=== PATIENT | female | born 1990 | race Caucasian/White ===

== ENCOUNTER 2023-09-01 10:46 | Outpatient (CLI) | payer OTHER, SELFPAY ==
--- NOTE | 2023-09-01 11:00 | CRLHL7_ITS ---
For Patients: As a result of the Century Cures Act, medical imaging exams and procedure reports are released immediately into your electronic medical record. You may view this report before your referring provider. If you have questions, please contact your health care provider. INDICATION: Ultrasound for dates and viability. Nine week 2 day gestation. Recent miscarriage Technique: Multiple transvaginal grayscale and color Doppler images obtained. FINDINGS: Examination shows a single intrauterine gestation. MEASUREMENTS: Right ovary measures 1.9 x 1.0 x 1.0 cm. Left ovary measures 2.9 x 2.2 x 2.2 cm. Corpus luteum cyst present. EARLY GESTATION MEASUREMENTS: Wisdom-rump length 3.0 cm, AGA of 10 weeks, 0 days. Mean gestational sac 4.9 cm, AGA of 10 weeks, 4 days. Yolk sac: 0.4 cm. Heart Rate: 173 bpm. Estimated date of delivery 03/29/2024 IMPRESSION: 1. Single viable intrauterine 2. Measurements are consistent with dates. Dictated by Rosas Bernabe MD @ 09/01/2023 3:13:30 PM (Electronically Signed)
== END 2023-09-01 10:47 | disposition home or self-care (01) ==
PROVIDERS: Visit Provider Advanced Practice Midwife
DX: Z34.91 Encounter for supervision of normal pregnancy, unspecified, first trimester (principal); Z3A.10 10 weeks gestation of pregnancy
CPT/HCPCS: 76817; 86703; 86706; 86803; 86850; 86900; 86901; 87086; 87340

== ENCOUNTER 2023-09-01 12:28 | Outpatient (CLI) | payer OTHER, SELFPAY | END 2023-09-01 12:29 | disposition home or self-care (01) | PROVIDERS: Visit Provider Advanced Practice Midwife | DX: Z34.91 Encounter for supervision of normal pregnancy, unspecified, first trimester (principal) | CPT/HCPCS: 86592; 86703; 86704; 86706; 86762; 86787; 86803; 86850; 86900; 86901; 87086; 87340 ==

== ENCOUNTER 2023-11-17 13:53 | Outpatient (CLI) | payer OTHER, SELFPAY ==
--- NOTE | 2023-11-17 14:00 | US_ITS ---
Patient: SHEELA MCCOY Facility:?[facility] Patient ID:?[id number] Site Patient ID:?[id number]. Site :?[id number] Study:?US-OB Pelvis OB > 14wks-11/17/2023 3:24:11 PM Ordering Physician:Sandy Snell Final Report: INDICATION: Evaluate anatomy. COMPARISON: 09/01/2023 TECHNIQUE: Real time lauren scale imaging of the fetus was performed as well as color Doppler analysis of the umbilical vessels. FINDINGS: Sonographic imaging demonstrates a single living intrauterine gestation. Fetus demonstrates a regular cardiac rate of 139 beats per minute. Fetus has a transverse position, head maternal right. The placenta lies anterior. Placental edge is 2.0 cm from the internal cervical os. Amniotic fluid volume appears normal. Single deepest vertical pocket: 3.4 cm. The cervix is closed and measures 3.9 cm in length. The composite ultrasound gestational age is calculated at 21 weeks 1 day with an estimated sonographic due date of 03/28/2024. The estimated weight is 410 grams which lies at the 91st %. The following biometric measurements were obtained: Biparietal diameter: 5.1 cm/21 weeks 2 days 86th% Head circumference: 18.5 cm/20 weeks 6 days 68th% Abdominal circumference: 16.9 cm/21 weeks 6 days 88th% Femur length: 3.4 cm/20 weeks 4 days 54th% The HC/AC ratio measures: 1.10 range (1.06-1.25) On anatomic survey, there is a normal appearance of the cerebral ventricles, cavum septi pellucidi, cisterna magna and cerebellum. The nose, lips, and facial profile appear normal. The cervical, thoracic and lumbar spine are well visualized and appear normal. There is a normal four-chamber heart view and the left and right ventricular outflow tracts appear normal. The diaphragm and stomach appear normal. The kidneys and bladder also appear normal. There is a normal three-vessel cord and cord insertion site. The four extremities appear normal. IMPRESSION: Sonographic gestational age 21 weeks 1 day and sonographic due date 03/28/2024. Sonographic age 6 days ahead of the clinical age. No intrinsic abnormalities noted on anatomic survey. Low-lying anterior placenta located 2.0 cm from the internal cervical os. Dictated by Amandeep Yi MD @ 11/18/2023 12:50:44 PM Signed by:?Amandeep Yi MD @11/18/2023 12:50:44 PM (Electronic Signature)
== END 2023-11-17 13:54 | disposition home or self-care (01) ==
LOC: US 13:53
PROVIDERS: Visit Provider Advanced Practice Midwife
DX: Z34.92 Encounter for supervision of normal pregnancy, unspecified, second trimester (principal); O44.42 Low lying placenta NOS or without hemorrhage, second trimester; Z3A.21 21 weeks gestation of pregnancy
CPT/HCPCS: 76805

== ENCOUNTER 2024-01-15 12:43 | Outpatient (CLI) | payer OTHER, SELFPAY ==
--- NOTE | 2024-01-15 13:00 | CRLHL7_ITS ---
For Patients: As a result of the Century Cures Act, medical imaging exams and procedure reports are released immediately into your electronic medical record. You may view this report before your referring provider. If you have questions, please contact your health care provider. HISTORY: Low-lying placenta. COMPARISON: Ob ultrasound from 11/17/2023 TECHNIQUE: Limited Ob ultrasound examination of the is performed with transabdominal technique. FINDINGS: A single intrauterine gestation is seen in breech presentation with regular cardiac activity at 135 beats per minute. The placenta is anterior and is free of the cervical os. The previously seen low-lying inferior placental margin is no longer present. The placental grade is 0 and the amniotic fluid volume is normal. Single deepest vertical pocket: normal at 7.6 cm. The nondilated cervix is normal in length at 5.1 cm. IMPRESSION: Single intrauterine gestation in breech presentation with regular cardiac activity. Previously seen low lying margin of the anterior placenta is no longer present. The placenta is free of the cervical os. Dictated by Sony Benson MD @ 01/18/2024 12:10:06 AM (Electronically Signed)
== END 2024-01-15 12:44 | disposition home or self-care (01) ==
PROVIDERS: Visit Provider Advanced Practice Midwife
DX: O44.40 Low lying placenta NOS or without hemorrhage, unspecified trimester (principal)
CPT/HCPCS: 76816; 86592

== ENCOUNTER 2024-03-09 14:50 | Outpatient (CLI) | payer OTHER, SELFPAY | END 2024-03-09 14:51 | disposition home or self-care (01) | LOC: NFLDREF 03-15 06:03 | PROVIDERS: Visit Provider Midwife | DX: Z34.93 Encounter for supervision of normal pregnancy, unspecified, third trimester (principal); Z3A.36 36 weeks gestation of pregnancy | CPT/HCPCS: 87081; 87653 ==

== ENCOUNTER 2024-04-01 18:36 | Outpatient (CLI) | payer OTHER, SELFPAY ==
[2024-04-01 18:49] VITALS: BP 105/62; PULSE 75; PULSE 77; O2SAT 96
[2024-04-01 19:30] VITALS: TEMP 36.8
--- NOTE | 2024-04-01 21:28 | PC.OBNST ---
NST Note NST Note Start: 04/01/24 18:41 Freq: ONCE Status: Discharge Protocol: Document 04/01/24 21:27 CJ (Rec: 04/01/24 21:28 CJ Desktop) NST Note 4 Para (# of births) 1 EDC 04/03/24 Gestational Age In Weeks & Days 39 Weeks & 5 Days Patient Presented with Complaint(s) of Contractions/cramping Reactive Yes Appropriate for Gestational Age Yes RN Raymon Camarena RN Date 04/01/24 Reactive Yes Appropriate for Gestational Age Yes JUANI Hill RN Date 04/01/24 OB NST charge Yes Complete NST Note via Write Note Yes The provider's electronic signature indicates the NST is reactive/appropriate for gestational age. *Note to provider: If an addendum is required, open the patient's chart and click on the note under the Nurse/Allied Health tab.
== END 2024-04-01 21:20 | disposition home or self-care (01) ==
LOC: OB OUT 18:36 → OB 18:36
PROVIDERS: Visit Provider Advanced Practice Midwife
DX: O47.1 False labor at or after 37 completed weeks of gestation (principal); Z3A.39 39 weeks gestation of pregnancy
CPT/HCPCS: 59025; G0463

== ENCOUNTER 2024-04-04 01:01 | Inpatient (IN) | payer OTHER, SELFPAY ==
[2024-04-04] VITALS (21 sets, daily range): BP systolic 99–135; BP diastolic 53–82; PULSE 63–155; RESP 16–18; TEMP 36.4–36.9; O2SAT 96–98; BMI 23.0
--- NOTE | 2024-04-04 02:22 | W.PM.LDBA ---
Subjective History of Present Illness Time Seen by Provider: 12:55 Date Seen: 04/04/24 Narrative: Nata is a 33 yo at 40 1/7 weeks gestation being admitted to Labor and Delivery for spontaneous onset of labor. She came in breathing hard through contractions but coping well. She is supported by her , Keith. She denies any leaking of fluid or bleeding. She reports contractions have been irregular on and off since Thursday. Then last evening they returned and around 2300 is when they became more intense and she felt it was time to head to the Center. Her full history and physical was dictated by JOEY López on 03/16/2024. Please see this for details. Specific Issues/Plans Keith H&P by JOEY López on 03/16/2024 1. Hx of miscarriage X 2 prior to this last May 25 2. BMI 18.0 at NOB 3. AMA Offer genetic screening: declined Level II US: offered, declines 4. Low lying placenta, 2 cm from os at 20 weeks. Resolved. 28 week u/s: 8cm from OS 5. Hx 3rd degree lac per patient report. Pt reports very painful. Records state small 2nd degree 6. Measuring small for dates Appropriate growth from 38-39 weeks, consider growth if still behind at 40 weeks COVID: no, declines Flu: no, declines TDAP:declined 32wk Mental Health 02/09/2024 PHQ-9:2 HAY-7: OB - Problem Based A/P Additional Plan (1) Spontaneous onset of labor: Status: Acute (2) 40 weeks gestation of : Status: Acute (3) Pain during labor: Status: Acute (4) Advanced maternal age in multigravida: Status: Acute Plan ASSESSMENT:? 33 at 40 1/7 weeks gestation? complicated by:?Hx of miscarriage; Prepregnancy BMI 18; AMA; Low lying placenta, RESOLVED; Hx of 3rd degree, records state small second degree, measuring small for dates Labor type: Spontaneous, Active labor? Category 1 FHR pattern.?? Labor complicated by: none? GBS negative? ? PLAN:? 1. Routine intrapartum cares as ordered. Continue with expectant management? 2. Monitoring per policy, Intermittent? 3. Planning unmedicated . Candidate for analgesia of choice, if desired.?? 4. Patient encouraged to reposition and ambulate to promote physiologic labor and .? 5. Anticipate Delivery/Labor/Induction Plan Plan: expectant management OB Result Labs Blood Type: O (+) positive GBS Status: negative OB Exam Physical Exam Vital signs: Temp Pulse Resp BP 97.6 F 69 18 119/59 L 04/04/24 01:00 04/04/24 02:15 04/04/24 01:00 04/04/24 02:15 Narrative: Vitals Reviewed Constitutional:? Alert and oriented x3 HEENT:? Normocephalic, atraumatic Neck:? Supple Lungs:? Clear to auscultation bilaterally Heart:? Regular rate and rhythm, no murmur, rub or gallop Abdomen:? Soft, nontender, and gravid. Vertex by Theo's, confirmed with cervical exam. Extremities:? No edema or erythema Cervix: 9 cm/100%/0 station/vertex NST: 120 bpm/moderate variability/15x15 accelerations/no decelerations/contractions every 1-3 days Detailed Labor and Delivery Exam Patient Gravid: Yes
--- NOTE | 2024-04-04 02:33 | W.PM.OBVAGDE ---
OB Procedure Vag Delivery Mother Details Mother Details: Nata is a 33 year-old, 4, now Para 2021, admitted on 04/04/24 at 40 1/7 weeks gestation. : 4 Para: 2 Weeks Gestation: 40.1 Admission Date: 04/04/24 Additional Details Amniotic Membrane Status: SROM Amniotic Membrane Rupture Date: 04/04/24 Amniotic Membrane Rupture Time: 01:25 Amniotic Membrane Fluid Description: Clear Analgesia/Anesthesia Type: None Waterbirth: No Pitcoin: No (Expectant management, pitocin deferred with normal bleeding) Intrapartal Events: Precipitous Labor <3 Hrs Labor Onset: 23:00 Complete: 01:30 Pushin:30 Heart: heart tones during second stage were reassuring with delivery imminent with quick spot FHR check. Delivery Details Delivery Date: 04/04/24 Delivery Time: 01:33 Route of delivery: Infant Gender: Male Viability: Alive; Heart Rate Present Position at Delivery: OA Delivery Details: Patient was admitted for spontaneous onset of labor and progressed normally to complete assumed with pushing at 0130, shortly after arrival. SROM of clear fluid just prior to pushing at 0125. of a viable male at 0133 in kneeling over the birthing ball on the mat. Vertex delivered OA, nuchal identified but unable to reduce, delivered through. No shoulder. Body delivered easily and without incident. Infant passed to mothers abdomen with a vigorous cry. After delivery, mother was assisted from floor to bed with baby in her arms. Cord was clamped and cut at > 5 minutes. APGARS were 8 at one minute and 8 at five minutes respectively. Mouth was bulb suctioned. Intact placenta with a 3 vessel cord delivered spontaneously at 0152. Fundus firm. 1st degree perineal laceration identified and mutually decided to not repair. EBL 100 cc from floor, QBL not enough to measure with drape. Mother and baby stable; mother plans to breastfeed. weight pending. 1 Minute Interval Total Score: 8 5 Minute Interval Total Score: 8 Additional Details Shoulder Dystocia: No Placenta Delivery Time: 01:52 Placental Delivery Description: Spontaneous Blood Loss: 100 Laceration: Perineal - 1st Degree (No repair) Blood Loss Measurement Type: EBL (QBL not large enough to measure, EBL from floor) Bakri Used: No Sponge/Need Count Correct: Yes Cord Vessel Description: 3 Vessels, Nuchal Cord, Tight and Delivered through Event Summary Status: Mother and infant were stable after delivery. Disposition: floor
[2024-04-04] MEDS: IBUPROFEN 600 MG TABLET PO (04:05)
[2024-04-04] MEDS: DOCUSATE SODIUM 100 MG CAPSULE PO (16:07)
[2024-04-04] MEDS: LANOLIN CREAM 1 APPLIC TOPICAL (20:24)
[2024-04-05 01:37] VITALS: BP 100/62; PULSE 65; RESP 16; TEMP 36.9; O2SAT 95
--- NOTE | 2024-04-05 08:31 | P.DS_ITS ---
DS: Providers Provider Date Seen: 04/05/24 Date of admission: 04/04/24 01:01 Primary care physician: Not a Local Provider Admitting Clinician: Sandy Armas CNM Attending Physician on discharge: Jess COOK Date of Discharge: 04/05/24 DS: Diagnosis Discharge Diagnosis (1) care and examination: Status: Acute (2) Lactating mother: Status: Acute Exam Narrative: Exam Narrative: GENERAL APPEARANCE:? normal affect, alert, no distress MOOD:? appropriate CHEST:? clear to auscultation HEART:? regular rate and rhythm ABDOMEN:? soft, non-tender the uterine fundus is At Umbilicus, Midline and is appropriate for the stage of recovery. PERINEUM:? minimal to no edema of the perineum, there is a Perineal Laceration,? that is healing well. EXTREMITIES:? normal and minimal edema Const: Vital Signs, click to edit/add: Vital Signs - 24 hr 04/04/24 08:50 04/04/24 12:10 04/04/24 16:25 Temperature 98.5 F 98 F 98.5 F Pulse Rate [Pulse Oximeter] 68 63 74 Respiratory Rate 16 16 18 Blood Pressure [Le ft Arm] 99/65 112/75 106/63 Pulse Oximetry 96 98 96 Oxygen Delivery Me thod Room Air Room Air Room Air 04/04/24 19:27 04/05/24 01:37 Temperature 98.3 F 98.5 F Pulse Rate [Pulse Oximeter] 70 65 Respiratory Rate 16 16 Blood Pressure [Le ft Arm] 104/68 100/62 Pulse Oximetry 96 95 Oxygen Delivery Me thod Room Air Room Air OB - DS: Summary Hospital Course Hospital Course: The patient is a 33 year old G 4 now P 2021 at 40w1d gestation that was admitted to the Center on 04/04/24 for spontaneous labor. She had an uncomplicated vaginal delivery. She delivered a viable male infant. She is breast feeding. the patient has done well. The patient feels well.? The pain is well controlled with current medications.? She has no new complaints.? She is breast feeding and reports things are going well. the patient has done well.? Vitals have been stable.? She has remained afebrile.? Has a good appetite, is tolerating a general diet.? She is voiding without difficulty.? She is passing gas and has not had a bowel movement.? She is ambulating and denies any dizziness.? Has small amount of rubra lochia. She is planning possibly Paragard for prevention.? ?? Problems: none, but having some nipple pain? ?? plan:? Discharge home with baby.? Follow up in 2 weeks and 6 weeks.? , may see if needed? Hgb 12.3. ? For pain control of perineum, breast and pelvic pain, take 600 mg Ibuprofen every 6 hours as needed by mouth or 1000 mg acetaminophen (Tylenol) every 6 hours by mouth as needed. You can alternate these so you are taking something every 3 hours as needed. A heating pad can also be used for your abdomen or breasts.? Peripartum Data delivery method: Vaginal Laceration description: Periurethral - 1st Degree (not repaired) Episiotomy description: None complications: none [place] Infant Gender: Male Discharge Plan: Home Status at Discharge Functional status at discharge: independent ambulation Overall status at discharge: patient is progressing back to baseline Time Spent with Patient Time attestation: Total time spent providing and/or coordinating discharge services: Time spent: Less than 30 minutes Discharge Plan Discharge Disposition: Home, Self-Care Date of Admission: 04/04/24 01:01 Primary Care Provider: Provider,Not a Local Condition: Stable Anticipated Discharge Date/Time: 04/05/24 00:00 Discharge Medications: Continued Fish Oil 300-500 mg capsule 1 cap PO DAILY Classic 28 mg iron- 800 mcg tablet 1 tab PO DAILY Discontinued Unisom (doxylamine) 25 mg tablet 25 mg PO QHS PRN pyridoxine (vitamin B6) 25 mg tablet 25 mg PO ONCE Discharge Orders: Discharge Order (Routine); Ordered 04/05/24 Ordered By: Sofía Martinez Patient Education: OB Care, OB Vaginal/Breast Feeding Additional Instructions: Discharge instructions were reviewed with the patient including signs and symptoms of infection and home going medications Nothing vaginally for 6 weeks: no tampons or intercourse Do not drive while taking narcotic pain medication(s) Off Work or School for 6 weeks Symptoms to report to doctor: * Bleeding that saturates more than one pad per hour * Passing clots larger than the size of a golf ball * Pain not relieved by prescribed medication * Fever above 100.4 degrees Fahrenheit * A foul vaginal odor * Difficulty in emotions, mood, and functions * Thoughts of hurting yourself and/or * Painful, reddened area in your breast * Any drainage, redness, or tenderness in your IV/epidural site * Severe headache that doesn't improve after taking medications * Changes in vision, including temporary loss of vision, blurred vision, and/or light sensitivity * Upper abdominal pain (usually under ribs on the right side) * Decrease in urination or painful, frequent urinating * Chest pain * Shortness of breath * Tenderness or pain with redness and/swelling in the calf(s) of your leg 2-week visit: discuss feeding concerns, review control options and screen for anxiety/depression. 6-week visit for an annual exam. consultation services are available to all mothers and babies for the first year after delivery.? To make an appointment, please call [phone]. Activity Level: Activity as Tolerated Discharge Diet: Regular Follow Up Appointments: [facility] [Provider Group] Forms: MyHealth Info Instructions
[2024-04-05 08:45] VITALS: BP 102/64; PULSE 63; RESP 16; TEMP 36.9; O2SAT 97
== END 2024-04-05 10:57 | disposition home or self-care (01) | DRG 807 ==
LOC: OB OUT 01:02 → OB 14:58
PROVIDERS: Admitting Provider Advanced Practice Midwife; Visit Provider Advanced Practice Midwife
DX: O36.5930 Maternal care for other known or suspected poor fetal growth, third trimester, not applicable or unspecified (principal); Z37.0 Single live birth; O62.3 Precipitate labor; O70.0 First degree perineal laceration during delivery; Z3A.40 40 weeks gestation of pregnancy
CPT/HCPCS: 86592; G0463; A9270

== ENCOUNTER 2024-04-07 09:30 | Outpatient (CLI) | payer OTHER, SELFPAY ==
--- NOTE | 2024-04-07 10:49 | W.PM.LAC.MC ---
Consult Note - Mom Date of Visit Date of visit: 04/07/24 wedding consultant: Katelin Michelle Visit Code: Visit Patient's Information Phone number: [phone] : 4 Para: 2 Allergies No Known Drug Allergies Allergy (Verified 04/01/24 18:44) Mother's Medical History: Medical History (Updated 04/07/24 @ 00:00 by Background Daemon) Low lying placenta without hemorrhage, antepartum ?O44.40 - Low lying placenta NOS or without hemorrhage, unspecified trimester (ICD-10) History of miscarriage ?Z87.59 - Personal history of other complications of , childbirth and the puerperium (ICD-10) Work Plans: Return at 3 months Delivery Information Delivery type: Vaginal Weeks Gestation: 40w 1d Gestational Age: AGA Weight: 3.53 kg Discharge Weight: 3.408 kg Baby's Information Medications: none Baby's Age at Visit: 3d Baby's Provider or Clinic: [facility] Reason for Consult Reason for Consult: Shallow painful latch Past Experience Past Experience: Yes (BF x 2 mos, then pumped and bottled for 15 mo due to latch issues) Current Frequency of Day Feedings: every 2-3 hours, some cluster feeds last night Frequency of Night Feedings: every 2-3 hours Both Breasts: Yes (offering, sometimes just one side/feeding) Suck: strong, rhythmic Latch: slightly initially, mom notices some creasing after nursing Length of Time: 20-35 min/feed Goals: at least 1 year; hopes to breastfeed more and pump less this time Pumping Pumping: No Supplementing EMB Supplement: No Formula Supplement: No Baby Elimination Number of Wet Diapers a Day: 4 Number of BM a Day: 4, green and looser Breast/Nipple Condition Breast Information: Breasts full, slight firm, right slightly larger than left; nipples intact Engorgement: No Interventions for Engorgement: Warm Pack Maternal Nipple Condition - Left: Common Nipple Maternal Nipple Condition - Right: Common Nipple Sore Nipples: Yes Interventions for Sore Nipples: Lansinoh, Soothies and Expressed Breast Milk Onsite Pre-Feed weight: 3.358 kg Post-Feed weight: 3.383 kg Milk Transferred (mL): 25 Pre-Nursing Left Nipple: Within Normal Limits and Redness (slight bruising at end of nipple, no blister, no cracks) Pre-Nursing Right Nipple: Within Normal Limits Post-Nursing Left Nipple: Within Normal Limits Post-Nursing Right Nipple: Within Normal Limits Assessments/Interventions Assessments/Interventions: Jeancarlose able to latch well to both breasts for feeding; worked with mom to get a wider, deeper latch with asymmetric latch technique and using side of breast to keep chin/lip down for feeding Babe with rhythmic, coordinated suck. Mom reports increased comfort with suck pattern. Initially she was leaning into baby to latch; switched it to her bringing baby to the breast with deeper latch and increased comfort. Discussed treatment options for sore nipples; will continue using EBM and air drying. Can also use the [employer] Nipple Butter. Answered questions about pumping and pump options. Answered questions about adding bottles; wait until baby is about 3-4 weeks old. Answered questions about building milk supply, galactogogue options given low milk supply with first baby and pumping to freeze some for future use once baby 2 weeks old. Discussed milk collectors vs pumping; pros/cons and use of each. Mom to call back with questions/concerns. Time spent reviewing records and face to face with mom, dad and baby: 75 minutes. Meds Home Medications and Allergies Home Medications ?Medication ?Instructions ?Recorded ?Confirmed ?Type vits no.126-ferrous fum 1 tab PO DAILY 09/01/23 04/07/24 History 28 mg iron-folic acid 800 mcg tablet (Classic ) omega-3 fatty acids-fish oil 300 1 cap PO DAILY 12/16/23 04/07/24 History mg-500 mg capsule (Fish Oil) Allergies Allergy/AdvReac Type Severity Reaction Status Date / Time No Known Drug Allergies Allergy Verified 04/01/24 18:44
== END 2024-04-07 09:31 | disposition home or self-care (01) ==
LOC: OB LAC 09:31
PROVIDERS: Visit Provider Obstetrics & Gynecology
DX: Z39.1 Encounter for care and examination of lactating mother (principal)
CPT/HCPCS: G0463

== ENCOUNTER 2024-05-17 12:48 | Outpatient (CLI) | payer OTHER, SELFPAY ==
[2024-05-19 11:35] LABS: HPV Source Cervical; HPV, High Risk by TMA Not Detected
== END 2024-05-17 12:49 | disposition home or self-care (01) ==
PROVIDERS: Visit Provider Advanced Practice Midwife
DX: Z39.2 Encounter for routine postpartum follow-up (principal); Z12.4 Encounter for screening for malignant neoplasm of cervix
CPT/HCPCS: 87624; 87625; 88141; 88142

== ENCOUNTER 2025-06-15 13:36 | Outpatient (CLI) | payer OTHER, SELFPAY ==
--- NOTE | 2025-06-15 13:45 | CRLHL7_ITS ---
For Patients: As a result of the Century Cures Act, medical imaging exams and procedure reports are released immediately into your electronic medical record. You may view this report before your referring provider. If you have questions, please contact your health care provider. INDICATION: Dating and viability. LMP 04/18/2025. COMPARISON: None. TECHNIQUE: Ultrasound OB pelvis transvaginal for better visualization of the endometrium and ovaries. Real time grayscale imaging of the pelvis was performed. FINDINGS: Sonographic imaging demonstrates a single living intrauterine gestation. The embryo has a regular cardiac rate measuring 161 beats per minute. The embryo`s crown-rump length measures 2.0 cm which corresponds to a gestational age of 8 weeks 4 days with sonographic due date 01/21/2026. There is a normal-appearing yolk sac. The placenta has not yet developed. No evidence of a perigestational hemorrhage. The right ovary was not visualized. The left ovary measures 3.5 x 2.0 x 2.9 cm. Corpus luteal cyst in the left ovary. No free fluid in the pelvic cul-de-sac. IMPRESSION: 1. Single living intrauterine gestation corresponding to an ultrasound gestational age of 8 weeks 4 days with sonographic due date 01/21/2026. 2. The clinical gestational age by LMP is 8 weeks 2 days. Dictated by Rupa Anaya MD @ 06/16/2025 4:24:38 AM (Electronically Signed)
== END 2025-06-15 13:37 | disposition home or self-care (01) ==
PROVIDERS: Visit Provider Physician Assistant
DX: Z34.91 Encounter for supervision of normal pregnancy, unspecified, first trimester (principal); Z3A.08 8 weeks gestation of pregnancy
CPT/HCPCS: 76817

== ENCOUNTER 2025-06-15 14:32 | Outpatient (CLI) | payer OTHER, SELFPAY | END 2025-06-15 14:33 | disposition home or self-care (01) | PROVIDERS: Visit Provider Midwife | DX: Z34.81 Encounter for supervision of other normal pregnancy, first trimester (principal); Z3A.08 8 weeks gestation of pregnancy | CPT/HCPCS: 83020; 83021; 85660; 86592; 86703; 86704; 86706; 86762; 86787; 86803; 86850; 86900; 86901; 87086; 87340 ==

== ENCOUNTER 2025-07-12 10:04 | Outpatient (CLI) | payer OTHER, SELFPAY | END 2025-07-12 10:05 | disposition home or self-care (01) | LOC: LKVREF 10:09 | PROVIDERS: Visit Provider Advanced Practice Midwife | DX: Z34.91 Encounter for supervision of normal pregnancy, unspecified, first trimester (principal) | CPT/HCPCS: 87491; 87591 ==